=== PATIENT | female | born 1970 | race Caucasian/White ===

== ENCOUNTER 2022-10-03 08:05 | Outpatient (CLI) | payer BC, SELFPAY ==
--- NOTE | 2022-10-03 08:15 | CRLHL7_ITS ---
For Patients: As a result of the Century Cures Act, medical imaging exams and procedure reports are released immediately into your electronic medical record. You may view this report before your referring provider. If you have questions, please contact your health care provider. BILATERAL SCREENING MAMMOGRAM WITH COMPUTER-AIDED DETECTION AND TOMOSYNTHESIS TECHNIQUE: CC and MLO views were obtained. These mammographic images have been obtained using full-field digital technique. These mammographic images were interpreted with the benefit of computer-aided detection. Breast Tomosynthesis was used in this interpretation. COMPARISON FILM: 09/06/21, 08/16/20, 05/06/19. FINDINGS: The breasts are heterogeneously dense, which may obscure small masses IMPRESSION: There is no radiographic evidence for malignancy. ASSESSMENT: BI-RADS Category 2: Benign RECOMMENDATION: Routine screening mammogram in 1 year. A lay language report of this examination will be provided to the patient. Christian Chung M.D. Diagnostic Radiologist [email or web address] [place]/Dictated by: Christian Chung MD @ 10/03/2022 11:32:00 AM (Electronically Signed)
== END 2022-10-03 08:06 | disposition home or self-care (01) ==
LOC: MAMMO 08:07
PROVIDERS: PCP Family Medicine; Visit Provider Family Medicine
DX: Z12.31 Encounter for screening mammogram for malignant neoplasm of breast (principal); R92.2 Inconclusive mammogram
CPT/HCPCS: 77063; 77067

== ENCOUNTER 2022-11-30 08:05 | Outpatient (CLI) | payer BC, SELFPAY | END 2022-11-30 08:06 | disposition home or self-care (01) | LOC: NFLDREF 12-01 06:34 | PROVIDERS: PCP Family Medicine; Referring Provider Family Medicine; Visit Provider Family Medicine | DX: Z01.419 Encounter for gynecological examination (general) (routine) without abnormal findings (principal); Z13.6 Encounter for screening for cardiovascular disorders | CPT/HCPCS: 80053; 80061 ==

== ENCOUNTER 2022-12-24 09:21 | Outpatient (CLI) | payer BC, SELFPAY | END 2022-12-24 09:22 | disposition home or self-care (01) | LOC: OP CLINIC 09:21 | PROVIDERS: PCP Family Medicine; Visit Provider Surgery | DX: Z12.11 Encounter for screening for malignant neoplasm of colon (principal); K63.5 Polyp of colon; K57.30 Diverticulosis of large intestine without perforation or abscess without bleeding | CPT/HCPCS: 45385; 88305; J2250; J3010 ==

== ENCOUNTER 2024-01-17 07:50 | Outpatient (CLI) | payer BC, SELFPAY | END 2024-01-17 07:51 | disposition home or self-care (01) | LOC: NFLDREF 01-21 19:30 | PROVIDERS: PCP Family Medicine; Referring Provider Family Medicine; Visit Provider Family Medicine | DX: Z13.220 Encounter for screening for lipoid disorders (principal); Z13.1 Encounter for screening for diabetes mellitus | CPT/HCPCS: 80061; 82947 ==

== ENCOUNTER 2024-01-22 10:10 | Outpatient (CLI) | payer BC, SELFPAY ==
--- NOTE | 2024-01-22 10:15 | CRLHL7_ITS ---
For Patients: As a result of the Century Cures Act, medical imaging exams and procedure reports are released immediately into your electronic medical record. You may view this report before your referring provider. If you have questions, please contact your health care provider. BILATERAL DIGITAL SCREENING MAMMOGRAM WITH COMPUTER-AIDED DETECTION AND TOMOSYNTHESIS CLINICAL HISTORY: Routine screening exam. COMPARISON: 04/01/2018, 05/06/2019, 08/16/2020, 09/06/2021, 10/03/2022. TECHNIQUE: Digital mammogram in CC and MLO projections including computer-aided detection (CAD). Tomosynthesis was used in this interpretation. BREAST COMPOSITION: The breasts are heterogeneously dense, which may obscure small masses. FINDINGS: RIGHT Breast: No suspicious findings. LEFT Breast: Nodular density within the lower inner quadrant 4 cm from the nipple. IMPRESSION: LEFT breast asymmetry/mass. RECOMMENDATIONS: Additional mammographic views of the LEFT breast including 3D spot compression CC/MLO. LEFT breast ultrasound may also be required. BI-RADS Category 0: Incomplete: Need Additional Imaging Evaluation and/or Prior Mammograms for Comparison [facility] will contact the patient for follow-up. A lay language report of this examination will be provided to the patient. Dictated by Christian Chung MD @ 01/22/2024 11:09:17 AM elbertj/Dictated by: Christian Chung MD @ 01/22/2024 11:09:00 AM (Electronically Signed)
== END 2024-01-22 10:11 | disposition home or self-care (01) ==
LOC: MAMMO 10:11
PROVIDERS: PCP Family Medicine; Visit Provider Family Medicine
DX: Z12.31 Encounter for screening mammogram for malignant neoplasm of breast (principal); N63.20 Unspecified lump in the left breast, unspecified quadrant; R92.2 Inconclusive mammogram
CPT/HCPCS: 77063; 77067

== ENCOUNTER 2024-02-03 08:33 | Outpatient (CLI) | payer BC, SELFPAY ==
--- NOTE | 2024-02-03 08:45 | CRLHL7_ITS ---
For Patients: As a result of the Century Cures Act, medical imaging exams and procedure reports are released immediately into your electronic medical record. You may view this report before your referring provider. If you have questions, please contact your health care provider. CLINICAL HISTORY: LEFT breast mass/asymmetry. COMPARISON: 01/22/2024, 10/03/2022, 09/06/2021 TECHNIQUE: Digital LEFT mammogram in 2 projections with computer-aided detection. Tomosynthesis was used in this interpretation. Real-time ultrasound imaging of LEFT breast with imaging documentation. BREAST COMPOSITION: Heterogeneously dense FINDINGS: 3D spot compression CC/MLO left breast mammogram images submitted. Persistent nodular density within the lower inner quadrant left breast. No architectural distortion. No suspicious calcifications. Targeted left breast ultrasound performed at 8 o`clock 4 cm from the nipple. In this location, there is a simple anechoic cyst measuring 2.1 x 0.9 x 2.1 cm. IMPRESSION: Benign cyst left breast 8 o`clock 4 cm from the nipple measuring 2.1 cm. No suspicious findings. RECOMMENDATIONS: Annual bilateral screening mammography. BI-RADS: 2. Benign. Results and recommendations discussed with the patient. Dictated by Christian Chung MD @ 02/03/2024 9:20:07 AM (Electronically Signed)
--- OUTSIDE RECORDS SUMMARY | 2024-02-03 08:46 | XMS_ITS | Clinical Summary ---
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 Role Phone None Primary Care Provider Unavailabl e Allergies No known active allergies Medications Medication Sig Dispensed Refills Start Date End Date Status hydrOXYzine pamoate (VISTARIL) 25 mg capsule 11/20/2014 Active oxyCODONE-acetaminophen, 5-325 mg, (PERCOCET) 5-325 mg per tablet 11/20/2014 Active Family History Medical History Relation Name Comments Cancer Father Lung Premature CHD (under age 60) Father Passed at 61, had COPD Diabetes Maternal Grandmother Other Maternal Grandmother lupus Relation Name Status Comments Brother Alive Father Maternal Grandfather Maternal Grandmother Mother Alive Paternal Grandfather Paternal Grandmother Sister Alive Social History Tobacco Use Types Packs/Day Years Used Date Smoking Tobacco: Never Smokeless Tobacco: Never Tobacco Cessation:Counseling Given: Yes Alcohol Use Standard Drinks/Week Comments Yes 0 (1 standard drink = 0.6 oz pur e alcohol) very occasional Sex and Gender Information Value Date Recorded Sex Assigned at Not on file Gender Identity Not on file Sexual Orientation Not on file Obstetrics History Last Filed Vital Signs Vital Sign Reading Time Taken Comments Blood Pressure 116/78 11/23/2014 8:06 AM CDT Pulse 102 11/23/2014 8:06 AM CDT Temperature 36.7 ??C (98 ??F) 11/23/2014 8:06 AM CDT Respiratory Rate - - Oxygen Saturation 98% 11/23/2014 8:06 AM CDT Inhaled Oxygen Concentration - - Weight 86.2 kg (190 lb) 11/23/2014 8:06 AM CDT Height - - Body Mass Index - - Plan of Treatment Health Maintenance Due Date Last Done Comments Tdap 1981 Depression screening for age 12+ 1982 HIV for age 15-65 1985 BMI (ht and wt on same day) for age 18+ 1988 Hepatitis C screening for age 18-79 1988 Tetanus booster 1990 Colonoscopy through age 75 10/29/2015 Lipids for age 45-75 10/29/2015 Mammogram for age 45-75 01/07/2016 01/06/2015 Zoster (shingles) series for age 50+ (1 of 2) 2020 COVID-19 vaccine series (2022-24 season) 2023 Influenza for age 50-64 04/26/2024 Pap test for age 21-65 12/07/2025 3, 12/07/2022, 02/19/2017, Additional history exists Pneumococcal series for age 6-64 Aged Out No longer eligible based on patient's age to complete this topic Procedures Procedure Name Priority Date/Time Associated Diagnosis Comments HPV THIN PREP Routine 12/07/2022 1:15 PM CDT SCAN-MAMMOGRAPHY REPORT 01/06/2015 12:00 AM CDT from Last 3 Months or Most Recently Relevant to Health Maintenance Results * HPV HIGH RISK (12/07/2022 1:15 PM CDT) TYPE 16 Negative Negative 12/13/2022 1:49 PM CDT [facility] TYPE 18 Negative Negative 12/13/2022 1:49 PM CDT [facility] OTHER HIGH RISK TYPES Negative Negative 12/13/2022 1:49 PM CDT [facility] Other (Cervical/Vagina l) 12/07/2022 1:15 PM CDT 12/11/2022 3:03 PM CDT Narrative [facility] - 12/13/2022 1:49 PM CDT HPV types 16, 18, 31, 33, 35, 39, 45, 51, 52, 56, 58, 59, 66 and 68 DNA were undetectable or below the pre-set threshold. Methodology: [employer] [facility] 4800 HPV Test Lyssa Fritz MD MICROBIOLOGY [facility] 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 PCP - General 11/23/14
--- NOTE | 2024-02-03 09:15 | CRLHL7_ITS ---
For Patients: As a result of the Cures Act, medical imaging exams and procedure reports are released immediately into your electronic medical record. You may view this report before your referring provider. If you have questions, please contact your health care provider. PLEASE SEE DIGITAL DIAGNOSTIC LEFT MAMMOGRAM PERFORMED SAME DAY CRL:lcui verma/Dictated by: Christian Chung MD @ 02/03/2024 9:34:00 AM (Electronically Signed)
== END 2024-02-03 08:34 | disposition home or self-care (01) ==
LOC: MAMMO 08:34
PROVIDERS: PCP Family Medicine; Visit Provider Family Medicine
DX: N63.20 Unspecified lump in the left breast, unspecified quadrant (principal); N60.02 Solitary cyst of left breast; R92.8 Other abnormal and inconclusive findings on diagnostic imaging of breast
CPT/HCPCS: 76642; 77065; G0279

== ENCOUNTER 2024-12-25 10:05 | Outpatient (CLI) | payer BC, SELFPAY ==
--- NOTE | 2024-12-25 10:15 | CRLHL7_ITS ---
For Patients: As a result of the Cures Act, medical imaging exams and procedure reports are released immediately into your electronic medical record. You may view this report before your referring provider. If you have questions, please contact your health care provider. Indication: Right parotid gland pain Technique: Grayscale and color Doppler ultrasound of the right parotid gland performed. Comparison: None Findings: Normal sonographic appearance of the right parotid gland without abnormal vascularity or stone. No abscess or suspicious mass. Impression: Negative sonogram of the right parotid gland. Dictated by Christian Chung MD @ 12/25/2024 4:45:24 PM (Electronically Signed)
== END 2024-12-25 10:06 | disposition home or self-care (01) ==
LOC: US 10:05
PROVIDERS: PCP Family Medicine; Visit Provider Otolaryngology
DX: K11.8 Other diseases of salivary glands (principal)
CPT/HCPCS: 76536

== ENCOUNTER 2025-02-03 07:37 | Outpatient (CLI) | payer BC, SELFPAY | END 2025-02-03 07:38 | disposition home or self-care (01) | LOC: NFLDREF 02-04 19:33 | PROVIDERS: PCP Family Medicine; Referring Provider Family Medicine; Visit Provider Family Medicine | DX: E78.5 Hyperlipidemia, unspecified (principal); R73.01 Impaired fasting glucose; R53.83 Other fatigue | CPT/HCPCS: 80061; 82947; 84439; 84443 ==

== ENCOUNTER 2025-02-10 15:11 | Outpatient (CLI) | payer BC, SELFPAY ==
--- NOTE | 2025-02-10 15:20 | CRLHL7_ITS ---
For Patients: As a result of the Century Cures Act, medical imaging exams and procedure reports are released immediately into your electronic medical record. You may view this report before your referring provider. If you have questions, please contact your health care provider. INDICATION: BILATERAL SCREENING MAMMOGRAM, ASYMPTOMATIC 54 Y/O FEMALE COMPARISON: 01/22/2024, 10/03/2022, 09/06/2021 TECHNIQUE: Digital mammogram in CC and MLO projections including computer-aided detection (CAD) and tomosynthesis. BREAST COMPOSITION: The breasts are heterogeneously dense, which may obscure small masses. FINDINGS: No suspicious findings. ASSESSMENT: BI-RADS 2 Benign RECOMMENDATION: Annual screening mammogram. A lay language report of this examination will be provided to the patient. Dictated by: Christian Chung MD @ 02/11/2025 09:16:28 (Electronically Signed)
== END 2025-02-10 15:12 | disposition home or self-care (01) ==
LOC: MAMMO 15:11
PROVIDERS: PCP Family Medicine; Visit Provider Family Medicine
DX: Z12.31 Encounter for screening mammogram for malignant neoplasm of breast (principal); R92.333 Mammographic heterogeneous density, bilateral breasts
CPT/HCPCS: 77063; 77067

== ENCOUNTER 2025-08-09 07:47 | Outpatient (CLI) | payer BC, SELFPAY | END 2025-08-09 07:48 | disposition home or self-care (01) | LOC: NFLDREF 08-11 12:55 | PROVIDERS: PCP Family Medicine; Referring Provider Family Medicine; Visit Provider Family Medicine | DX: R79.89 Other specified abnormal findings of blood chemistry (principal) | CPT/HCPCS: 84439; 84443 ==